=== PATIENT | male | born 1985 | race Two or more races ===

== ENCOUNTER 2018-12-20 22:17 | Inpatient (IN) | payer OTHER ==
[~2018-12-20] VITALS: Ht 167.6 cm; Wt 69.9 kg
[2018-12-20 23:30] VITALS: BP 111/74
[2018-12-21] MEDS ORDERED: FAMO40TA7 PO (00:15)
[2018-12-21] MEDS ORDERED: HYDROCODONE/APAP 5/325MG 1 EACH TABLET PO PRN (00:30)
[2018-12-21] MEDS ORDERED: ONDANSETRON HCL/PF 4 MG/2 ML VIAL IVP PRN (00:30)
[2018-12-21] MEDS ORDERED: MAGNESIUM HYDROXIDE 30 ML UDC PO PRN (00:30)
[2018-12-21] MEDS ORDERED: MAG HYDROX/AL HYDROX/SIMETH 30 ML UDC PO PRN (00:30)
[2018-12-21] MEDS ORDERED: ZOLPIDEM TARTRATE 5 MG TABLET PO PRN (00:30)
[2018-12-21] MEDS ORDERED: ACETAMINOPHEN 325 MG TABLET PO PRN (00:30)
[2018-12-21] MEDS ORDERED: Z GUARD REMEDY 2 OZ OINT TP PRN (00:30)
[2018-12-21] MEDS: IV NS 0.9% 1,000 ML IV PRN (00:45)
[2018-12-21 00:54] LABS: BASOPHILS % (AUTO) 0.1 % (0.0-2.0); HEMATOCRIT 46 % (39-51); HEMOGLOBIN 15.4 g/dL (13.5-17.5); LYMPHOCYTES # (AUTO) 0.5 /CMM (0.8-4.8); MEAN CORPUSCULAR HGB CONC 34 g/dl (31.0-36.0); MEAN CORPUSCULAR VOLUME 83 fL (80-96); MONOCYTES # (AUTO) 0.7 /CMM (0.1-1.30); MONOCYTES % (AUTO) 6.9 % (2.0-12.0); NEUTROPHILS # (AUTO) 9.2 /CMM (1.8-8.9); PLATELET COUNT (AUTO) 217 /CMM (150-450); WHITE BLOOD COUNT (AUTO) 10.5 K/uL (4.3-11.0)
[2018-12-21 01:10] LABS: ALANINE AMINOTRANSFERASE 787 U/L (12-78); ALBUMIN 3.7 g/dL (3.4-5.0); ALKALINE PHOSPHATASE 185 U/L (46-116); ASPARTATE AMINOTRANSFERASE 940 U/L (15-37); BILIRUBIN,TOTAL 2.9 mg/dL (0.2-1.0); CALCIUM, SERUM 8.7 mg/dL (8.5-10.1); CARBON DIOXIDE 30 mmol/L (21-32); CHLORIDE 103 mmol/L (98-107); GLUCOSE 175 mg/dL (74-106); MAGNESIUM 1.7 mg/dL (1.8-2.4); PHOSPHORUS 3.8 mg/dL (2.5-4.9); POTASSIUM 4.1 mmol/L (3.5-5.1); SODIUM SERUM 141 mmol/L (136-145); TOTAL PROTEIN, SERUM 7.4 g/dL (6.4-8.2); UREA NITROGEN, BLOOD 10 mg/dL (7-18)
[2018-12-21 01:20] LABS: THYROID STIMULATING HORMONE 0.532 uIU/mL (0.358-3.74)
--- NOTE | 2018-12-21 01:21 | NUR ---
RECEIVE PT VIA [facility] WITH 2 EMT FROM [facility] ADMIT TO MS PT A/O X 3, HEAD TO TOE ASSESSMENT IS DONE SKIN IS INTACT. RESPIRATIONS EVEN AND UNLABORED. NO NAUSEA AND VOMITING, DENIES CHEST PAIN. KEPT CLEAN DRY AND COMFORTABLE, SAFETY MEASURES IN PLACE. WILL CONTINUE TO MONITOR.
[2018-12-21] MEDS ORDERED: PIPERACILLIN /TAZOBACTAM 3.375 G VIAL IV ONE (01:30)
[2018-12-21] MEDS ORDERED: ZOSYN IVPB 3.375 G in IV D5W 50ml IV ONE (01:30)
[2018-12-21] MEDS: MORPHINE SULFATE INJ 2 MG/ML DISP.SYRIN IV PRN ×2 (02:07→17:46)
--- NOTE | 2018-12-21 05:59 | NUR ---
ASLEEP AND EASILY AWAKEN. NOT IN DISTRESS, STABLE. NEEDS ATTENDED AND ANTICIPATED, NO COMPLAIN OF PAIN. KEPT CLEAN AND DRY AND COMFORT. RESPIRATIONS EVEN AND UNLABORED. NURSING CARE RENDERED, SAFETY MEASURES IN PLACE, BED IN LOW LOCKED POSITION, CALL LIGHT WITHIN EASY REACH. ENDORSE TO NEXT SHIFT CONTINUITY OF CARE.
[2018-12-21] MEDS ORDERED: PIPERACILLIN /TAZOBACTAM 4.5 G in IV D5W 50 ML IV SCH (06:00)
--- NOTE | 2018-12-21 07:30 | NUR ---
MS RN Opening Notes Patient asleep, resting in bed. Semi-Fowlers position. Alert and oriented x3, able to make needs known. No complaints of shortness of breath or chest pain at this time. Mild abdominal pain noted. Respirations even and unlabored on room air, no acute distress noted. Peripheral IV to the right AC 20 gauge, intact, patent and infusing fluids as ordered. Updated patient on current plan of care and safety measures. Safety and fall precautions in place: bed in lowest and locked position, side rails up x2, bed alarm on, call light and personal possessions within reach. Will continue to monitor and intervene as needed.
[2018-12-21 08:00] VITALS: BP 123/76
[2018-12-21] MEDS: PIPERACILLIN /TAZOBACTAM 3.375 G in IV D5W 100 ML IV SCH ×2 (08:00→15:44)
--- NOTE | 2018-12-21 08:29 | NUR ---
Dr. Bowers rounded on patient. Plan of care explained, patient verbalized understanding. alarm installation technician clarified hepatobiliary hida scan procedure. Consent forms signed and in chart; patient screened for allergies prior to procedure.
--- NOTE | 2018-12-21 10:00 | NUR ---
[facility].
--- NOTE | 2018-12-21 11:00 | NUR ---
Patient left the unit in a wheelchair, in stable condition, for procedures/tests. NM Hida scan and then will be transferred to MRI for MRCP.
[2018-12-21] MEDS: Magnesium 1GM/D5W 100ML PREMIX 100 ML IV SCH ×2 (12:00→13:00)
--- NOTE | 2018-12-21 13:26 | NUR ---
Patient arrived back from MRI via wheelchair in stable condition. Cleared to have clear liquid diet tray as ordered. However, per AR video technician, patient needs a re-scan of the Hida scan and needs to have IV pain management, fluids and medications held at this time. AR Hida re-scan set for 1430. Family present at bedside. Patient updated on plan of care, verbalized understanding. Will continue to monitor.
--- NOTE | 2018-12-21 15:40 | NUR ---
Patient arrived back from MRI via wheelchair in stable condition. Cleared to have clear liquid diet tray as ordered. Family present at bedside. Patient updated on plan of care, verbalized understanding. Will continue to monitor.
--- NOTE | 2018-12-21 16:02 | NUR ---
Patient resides with his significant other in a mobile home in [place]. He is ambulatory and independent with adl's. He works as a cook for [employer]. Family will provide ride when discharge. Addendum: 12/21/18 at 1603 by LENORE HOWARD RN Amended: Links added.
[2018-12-21] MEDS ORDERED: Magnesium 1GM/D5W 100ML PREMIX PIGGYBACK IV ONE (17:00)
--- NOTE | 2018-12-21 18:19 | NUR ---
MS RN Closing Notes Patient asleep, resting in bed. Semi-Fowlers position. Alert and oriented x3, able to make needs known. No complaints of shortness of breath or chest pain at this time. Mild abdominal pain noted, controlled with PRN IV pain medications. Respirations even and unlabored on room air, no acute distress noted. Peripheral IV to the right AC 20 gauge, intact, patent and infusing fluids as ordered. Updated patient on current plan of care and safety measures. Safety and fall precautions in place: bed in lowest and locked position, side rails up x2, bed alarm on, call light and personal possessions within reach. Family at bedside. Will endorse to night shift supervisor RN for continuity of care.
--- NOTE | 2018-12-21 19:32 | NUR ---
MS/RN NOTES RECEIVED PT. LYING IN BED. PT. IS AWAKE, ALERT AND ORIENTED X4. BREATHING EVEN AND UNLABORED ON ROOM AIR. NO SOB, RESPIRATORY DISTRESS OR COMPLAINTS OF PAIN NOTED AT THIS TIME. PT. WITH RIGHT AC 20 GAUGE PERIPHERAL IV PRESENT, PATENT AND INTACT ADMINISTERING TO PT. NS @ 75 ML/HR. BED LOCKED AND IN LOWEST POSITION, SIDE RAILS UP X2, CALL LIGHTS WITHIN REACH, WILL CONTINUE TO MONITOR.
[2018-12-21 20:03] VITALS: BP 114/69
[2018-12-22] MEDS: PIPERACILLIN /TAZOBACTAM 3.375 G in IV D5W 100 ML IV SCH ×3 (00:27→15:40)
[2018-12-22] MEDS: MORPHINE SULFATE INJ 2 MG/ML DISP.SYRIN IV PRN ×3 (02:01→13:44)
--- NOTE | 2018-12-22 06:31 | NUR ---
MS/RN NOTES PT. IS LYING IN BED RESTING. BREATHING EVEN AND UNLABORED ON ROOM AIR. NO SOB, RESPIRATORY DISTRESS OR COMPLAINTS OF PAIN NOTED AT THIS TIME. PT. WITH RIGHT AC 20 GAUGE PERIPHERAL IV PRESENT, PATENT AND INTACT ADMINISTERING TO PT. NS @ 75 ML/HR. ALL PT. NEEDS MET. BED LOCKED AND IN LOWEST POSITION, SIDE RAILS UP X2, CALL LIGHTS WITHIN REACH, WILL ENDORSE TO DAYSHIFT NURSE FOR CONTINUITY OF CARE.
[2018-12-22 06:37] LABS: BASOPHILS % (AUTO) 0.6 % (0.0-2.0); CALCIUM, SERUM 8.8 mg/dL (8.5-10.1); EOSINOPHILS % (AUTO) 1.5 % (0.0-6.0); HEMATOCRIT 44 % (39-51); HEMOGLOBIN 14.8 g/dL (13.5-17.5); LYMPHOCYTES # (AUTO) 1.7 /CMM (0.8-4.8); LYMPHOCYTES % (AUTO) 27.7 % (20.0-44.0); MAGNESIUM 1.9 mg/dL (1.8-2.4); MEAN CORPUSCULAR HGB CONC 34 g/dl (31.0-36.0); MEAN CORPUSCULAR VOLUME 85 fL (80-96); MONOCYTES # (AUTO) 0.5 /CMM (0.1-1.30); MONOCYTES % (AUTO) 8.3 % (2.0-12.0); NEUTROPHILS # (AUTO) 3.9 /CMM (1.8-8.9); NEUTROPHILS % (AUTO) 61.9 % (43.0-81.0); PHOSPHORUS 3.1 mg/dL (2.5-4.9); PLATELET COUNT (AUTO) 202 /CMM (150-450); POTASSIUM 3.8 mmol/L (3.5-5.1); RED BLOOD CELL COUNT(AUTO) 5.18 MIL/uL (4.5-6.0); WHITE BLOOD COUNT (AUTO) 6.2 K/uL (4.3-11.0)
[2018-12-22] MEDS: IV NS 0.9% 1,000 ML IV PRN (07:03)
--- NOTE | 2018-12-22 07:35 | NUR ---
MS RN Opening Notes Patient awake, resting in bed. Semi-Fowlers position. Alert and oriented x3, able to make needs known. No complaints of shortness of breath or chest pain at this time. Respirations even and unlabored on room air, no acute distress noted. Peripheral IV to the right AC 20 gauge, intact, patent and infusing fluids as ordered. Updated patient on current plan of care and safety measures. Safety and fall precautions in place: bed in lowest and locked position, side rails up x2, bed alarm on, call light and personal possessions within reach. Will continue to monitor and intervene as needed.
[2018-12-22 08:00] VITALS: BP 130/77
[2018-12-22 16:00] VITALS: BP 115/73
[2018-12-22 16:02] VITALS: BP 115/73
--- NOTE | 2018-12-22 19:30 | NUR ---
MS RN Closing Notes Patient awake, resting in bed. Semi-Fowlers position. Alert and oriented x4, able to make needs known. Vital signs stable. No complaints of shortness of breath or chest pain. Respirations even and unlabored on room air, no acute distress noted. Ambulates with steady gait. Peripheral IV to the right AC 20 gauge, intact, patent and infusing fluids as ordered. Skin assessment refused, no skin issues noted but patient still refused photographic documentation. Discharge instructions and Exitcare provided to patient, patient verbalized understanding and signed discharge instructions. Patient left with all personal belongings and clothing items, acknowledged and verified via signature on form. Transfer paperwork prepared and signed for acute care transfer to [facility], accepting physician Dr. Villegas. Matthew Lin, nurse case manager, ambulance pickup time 1999. Endorsed to assistant shift supervisor nurse Barby to give report to accepting facility. Updated patient on current plan of care and safety measures. Safety and fall precautions in place: bed in lowest and locked position, side rails up x2, bed alarm on, call light and personal possessions within reach.
--- NOTE | 2018-12-22 20:25 | NUR ---
FISHER TROLL LINE NOTES SEEN PT IN BED AWAKE AND ALERT AMBULATORY AND AWARE REGARDING HIS TRANSFERRED. HEPLOCK PATENT AND INTACT ,DENIES ANY PAIN OR ANY DISCOMFORT. CALLED [facility] AND GAVE REPORT TO NURSING ASSISTANT ADMINISTRATOR TINY . METAL TRADES INSTRUCTOR CAME AND CLOUD SUBJECT MATTER EXPERT THE PATIENT FOR TRANSFERRED. NO SIGNS OF ANY DISCOMFORT. COPY OF PT CHART HAND HELD TO THE METAL TRADES INSTRUCTOR AND GAVE REPORT WELL.
== END 2018-12-22 20:25 | disposition short-term general hospital (02) ==
LOC: MED 23:21
PROVIDERS: ADMIT Family Medicine; ATTEND Family Medicine
DX: K80.00 Calculus of gallbladder with acute cholecystitis without obstruction (principal); I10 Essential (primary) hypertension; R74.0 Nonspecific elevation of levels of transaminase and lactic acid dehydrogenase [LDH]
CPT/HCPCS: 36415; 71046; 74181-TC; 78226; 80048-TC; 80053-TC; 80061-TC; 83735-TC; 84100-TC; 84443-TC; 84484-TC; 85025-TC; 85730-TC; 87081-TC; A9537; G0378; J2270; J2543; J3475; J7030; J7060